=== PATIENT | male | born 1940 | race Caucasian/White ===

== ENCOUNTER 2025-06-08 14:28 | Outpatient (CLI) | payer MEDICARE, BC | END 2025-06-08 14:29 | disposition home or self-care (01) | LOC: CSHWCC 14:28 | PROVIDERS: ATTEND Nurse Practitioner Family | DX: I70.235 Atherosclerosis of native arteries of right leg with ulceration of other part of foot (principal); L97.512 Non-pressure chronic ulcer of other part of right foot with fat layer exposed; M86.171 Other acute osteomyelitis, right ankle and foot; D69.6 Thrombocytopenia, unspecified; L08.9 Local infection of the skin and subcutaneous tissue, unspecified | CPT/HCPCS: 11042; 99212; G0463 ==

== ENCOUNTER 2025-06-16 12:48 | Outpatient (CLI) | payer MEDICARE, BC | END 2025-06-16 12:49 | disposition home or self-care (01) | LOC: CSHWCC 12:48 | PROVIDERS: ATTEND Nurse Practitioner Family | DX: I70.235 Atherosclerosis of native arteries of right leg with ulceration of other part of foot (principal); L97.512 Non-pressure chronic ulcer of other part of right foot with fat layer exposed; M86.171 Other acute osteomyelitis, right ankle and foot; D69.6 Thrombocytopenia, unspecified; L08.9 Local infection of the skin and subcutaneous tissue, unspecified | CPT/HCPCS: 11042; 99213; G0463 ==

== ENCOUNTER 2025-06-22 11:08 | Outpatient (CLI) | payer MEDICARE, BC | END 2025-06-22 11:09 | disposition home or self-care (01) | LOC: CSHWCC 11:08 | PROVIDERS: ATTEND Nurse Practitioner Family | DX: I70.235 Atherosclerosis of native arteries of right leg with ulceration of other part of foot (principal); L97.512 Non-pressure chronic ulcer of other part of right foot with fat layer exposed; M86.171 Other acute osteomyelitis, right ankle and foot; D69.6 Thrombocytopenia, unspecified | CPT/HCPCS: 97597 ==

== ENCOUNTER 2025-06-29 11:14 | Outpatient (CLI) | payer MEDICARE, BC | END 2025-06-29 11:15 | disposition home or self-care (01) | LOC: CSHWCC 11:14 | PROVIDERS: ATTEND Nurse Practitioner Family | DX: I70.235 Atherosclerosis of native arteries of right leg with ulceration of other part of foot (principal); L97.512 Non-pressure chronic ulcer of other part of right foot with fat layer exposed; M86.171 Other acute osteomyelitis, right ankle and foot; D69.6 Thrombocytopenia, unspecified | CPT/HCPCS: 97597 ==

== ENCOUNTER 2025-07-06 10:57 | Outpatient (CLI) | payer MEDICARE, BC | END 2025-07-06 10:58 | disposition home or self-care (01) | LOC: CSHWCC 10:57 | PROVIDERS: ATTEND Nurse Practitioner Family | DX: I70.235 Atherosclerosis of native arteries of right leg with ulceration of other part of foot (principal); L97.512 Non-pressure chronic ulcer of other part of right foot with fat layer exposed; M86.171 Other acute osteomyelitis, right ankle and foot; D69.6 Thrombocytopenia, unspecified ==

== ENCOUNTER 2025-07-14 13:15 | Outpatient (CLI) | payer MEDICARE, BC | END 2025-07-14 13:16 | disposition home or self-care (01) | LOC: CSHWCC 13:15 | PROVIDERS: ATTEND Nurse Practitioner Family | DX: I70.235 Atherosclerosis of native arteries of right leg with ulceration of other part of foot (principal); L97.512 Non-pressure chronic ulcer of other part of right foot with fat layer exposed; M86.171 Other acute osteomyelitis, right ankle and foot; D69.6 Thrombocytopenia, unspecified | CPT/HCPCS: 99213; G0463 ==

== ENCOUNTER 2025-07-20 11:22 | Outpatient (CLI) | payer MEDICARE, BC | END 2025-07-20 11:23 | disposition home or self-care (01) | LOC: CSHWCC 11:22 | PROVIDERS: ATTEND Nurse Practitioner Family | DX: I70.235 Atherosclerosis of native arteries of right leg with ulceration of other part of foot (principal); L97.512 Non-pressure chronic ulcer of other part of right foot with fat layer exposed; M86.171 Other acute osteomyelitis, right ankle and foot; D69.6 Thrombocytopenia, unspecified | CPT/HCPCS: 99212; G0463 ==